=== PATIENT | female | born 1990 | race African-American/Black ===

== ENCOUNTER 2016-10-29 20:51 | Emergency (ER) | payer OTHER | END 2016-10-29 22:57 | disposition home or self-care (01) | LOC: FER 20:51 | DX: S83.511A Sprain of anterior cruciate ligament of right knee, initial encounter (principal); V49.60XA Unspecified car occupant injured in collision with unspecified motor vehicles in traffic accident, initial encounter; Y92.410 Unspecified street and highway as the place of occurrence of the external cause | CPT/HCPCS: 99283; J1885 ==

== ENCOUNTER 2022-01-27 22:21 | Emergency (ER) | payer OTHER ==
[~2022-01-27 22:21] MED LIST: BACTRIM DS TAB1 EACH PO
[2022-01-28 01:43] LABS: CORONAVIRUS 2019 SARS-COV-2 NEGATIVE (NEGATIVE); INFLUENZA A NAA NEGATIVE (NEGATIVE)
[2022-01-28] MEDS ORDERED: ONDANSETRON ODT4 MG PO (02:03)
[2022-01-28] MEDS ORDERED: NORCO 5-325 TA1 EACH PO (02:03)
== END 2022-01-28 02:40 | disposition home or self-care (01) ==
LOC: FER 22:21
PROVIDERS: Emergency Medicine
DX: R51.9 Headache, unspecified (principal); R50.9 Fever, unspecified; Z20.822 Contact with and (suspected) exposure to COVID-19; R42 Dizziness and giddiness; Z86.2 Personal history of diseases of the blood and blood-forming organs and certain disorders involving the immune mechanism
CPT/HCPCS: 70450; Q0162; U0002